=== PATIENT | female | born 1985 | race Hispanic/Latino ===

== ENCOUNTER 2020-06-13 19:59 | Observation (INO) | payer BC ==
[2020-06-13] MEDS ORDERED: MORPHINE 4 MG/ML SYR ONE ×2 (20:50→22:37)
[2020-06-13] MEDS ORDERED: ONDANSETRON 4 MG/2 ML VIAL ONE (20:50)
[2020-06-13] MEDS ORDERED: FAMOTIDINE 20 MG/2 ML VIAL IV ONE (20:51)
[2020-06-13] MEDS ORDERED: NA CHLORIDE 0.9% 1,000 ML ONE (20:51)
[2020-06-13 21:03] LABS: Urine Blood NEGATIVE (NEG); Urine Glucose NEGATIVE (NEG); Urine Protein 2+ (NEG); Urine Specific Gravity 1.025 (1.005-1.030)
[2020-06-13 21:04] LABS: Basophils % 0.4 % (0-1.3); Hematocrit 34.3 % (36.0-45.0); Lymphocytes % 7.2 % (15.3-44.8); MPV 7.7 fL (7.6-11.3); RBC Red Blood Cell Count 4.85 M/uL (3.86-4.86)
[2020-06-13 21:20] LABS: Albumin 3.9 g/dL (3.4-5.0); Bilirubin Direct 0.2 mg/dL (0-0.2); Bilirubin Total 0.5 mg/dL (0.2-1.0); Potassium 3.7 mmol/L (3.5-5.1); Protein, Total 8.4 g/dL (6.4-8.2)
[2020-06-13] MEDS ORDERED: D5 0.9 NS 1,000 ML IV ONE (22:33)
[2020-06-13] MEDS ORDERED: PROMETHAZINE INJ 25 MG/ML AMP ONE (22:41)
--- NOTE | 2020-06-14 00:37 | ER ---
Nurse's Notes [facility] Name: Ana Maria Urias Age: 34 yrs Sex: Female : 1985 Arrival Date: 06/13/2020 Time: 20:01 Bed 18 Private MD: Diagnosis: Abdominal Pain;Intractable Vomiting;Dehydration Presentation: 06/13 20:04 Chief complaint: Patient states: "I started getting sick on Sunday. I have had a cough, jd3 body aches and not feeling well. today I started having stomach pain and vomiting.". Coronavirus screen: cough unrelated to allergies, Client presents with at least one sign or symptom that may indicate coronavirus-19. Standard/surgical mask placed on the client. Provider contacted for isolation considerations. Ebola Screen: Patient negative for fever greater than or equal to 101.5 degrees Fahrenheit, and additional compatible Ebola Virus Disease symptoms. Initial Sepsis Screen: Does the patient meet any 2 criteria? No. Patient's initial sepsis screen is negative. Does the patient have a suspected source of infection? No. Patient's initial sepsis screen is negative. Risk Assessment: Do you want to hurt yourself or someone else? Patient reports no desire to harm self or others. Onset of symptoms was June 10, 2020. 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 - Social history:: Smoking status: Patient denies any tobacco usage or history of. Screenin:59 Abuse screen: Denies threats or abuse. Denies injuries from another. Nutritional mg2 screening: No deficits noted. Tuberculosis screening: No symptoms or risk factors identified. Fall Risk IV access (20 points). Assessment: 20:59 General: Appears in no apparent distress. comfortable, Behavior is calm, cooperative. mg2 Pain: Complains of pain in left upper quadrant and right upper quadrant and epigastric area. Neuro: Level of Consciousness is awake, alert, obeys commands, Oriented to person, place, time, situation. Cardiovascular: Capillary refill < 3 seconds Patient's skin is warm and dry. Respiratory: Airway is patent Respiratory effort is even, unlabored, Respiratory pattern is regular, symmetrical. GI: Bowel sounds present X 4 quads. Abd is soft. : Urine is clear. EENT: No signs and/or symptoms were reported regarding the EENT system. Derm: Skin is intact, is healthy with good turgor, Skin is pink, warm \\T\\ dry. normal. Musculoskeletal: Circulation, motion, and sensation intact. Capillary refill < 3 seconds. 21:48 Reassessment: Patient appears in no apparent distress at this time. Patient and/or mg2 family updated on plan of care and expected duration. Pain level reassessed. Patient is alert, oriented x 3, equal unlabored respirations, skin warm/dry/pink. 22:42 Reassessment: patient was vomiting and still complaining of abdominal pain, provider mg2 informed and meds was given. 06/14 01:03 Reassessment: patient still nauseous and been vomiting in ED. provider advised for mg2 admit. hospitalist came and exmained the patient. covid swab sent to lab. 02:29 Reassessment: Negative COVID 19 results reported to Jackson MARSHP, and Adelina ORDAZ [facility], sg pt to have a bed assignment, primary nurse notified. Vital Signs: 06/13 20:06 BP 138 / 88; Pulse 91; Resp 17 S; Temp 98.2(O); Pulse Ox 100% on R/A; Weight 92.99 kg jd3 (R); Height 5 ft. 5 in. (165.10 cm) (R); Pain 7/10; 21:48 Pulse 87; Resp 18; Pulse Ox 100% on R/A; mg2 22:41 BP 134 / 82; Pulse 82; Resp 18; Pulse Ox 100% on R/A; mg2 23:46 BP 124 / 77; Pulse 81; Resp 18; Pulse Ox 100% on R/A; mg2 06/14 01:04 BP 121 / 69; Pulse 90; Resp 18; Temp 98.5; Pulse Ox 100% on R/A; mg2 02:08 BP 124 / 76; Pulse 75; Resp 18; Pulse Ox 100% on R/A; mg2 06/13 20:06 Body Mass Index 34.11 (92.99 kg, 165.10 cm) jd3 ED Course: 06/13 20:01 Patient arrived in ED. am2 20:06 Triage completed. jd3 20:07 Long [place], SUSHMA is Primary Nurse. mg2 20:08 Arm band placed on. jd3 20:10 Veto Rosario MD is Attending Physician. mh7 20:39 Radiology exam delayed due to test not completed at this time. mw3 20:55 Radiology exam delayed due to test not completed at this time. mw3 20:58 No provider procedures requiring assistance completed. Inserted saline lock: 20 gauge mg2 in left antecubital area, using aseptic technique. Blood collected. 20:59 Patient has correct armband on for positive identification. Door closed. mg2 21:07 Chest Single View XRAY In Process Unspecified. EDMS 21:28 CT Abd/Pelvis - IV Contrast Only In Process Unspecified. EDMS 06/14 00:36 Mechelle Bone MD is Hospitalizing Provider. 7 02:47 Patient admitted, IV remains in place. mg2 Administered Medications: 06/13 20:57 Drug: morphine 4 mg Route: IVP; Site: left antecubital; mg2 22:16 Follow up: Response: No adverse reaction; RASS: Alert and Calm (0) mg2 20:57 Drug: Zofran (Ondansetron) 4 mg Route: IVP; Site: left antecubital; mg2 22:15 Follow up: Response: No adverse reaction mg2 20:57 Drug: Pepcid 20 mg Route: IVP; Site: left antecubital; mg2 22:15 Follow up: Response: No adverse reaction mg2 20:58 Drug: NS 0.9% 1000 ml Route: IV; Rate: 1000 ml; Site: left antecubital; mg2 22:16 Follow up: Response: No adverse reaction; IV Status: Completed infusion; IV Intake: mg2 1000ml 22:22 Drug: D5-NS 1000 ml Route: IV; Rate: bolus; Site: left antecubital; mg2 06/14 01:05 Follow up: Response: No adverse reaction; IV Status: Completed infusion; IV Intake: mg2 1000ml 06/13 22:32 Drug: morphine 4 mg Route: IVP; Site: left antecubital; mg2 23:00 Follow up: Response: No adverse reaction; Marked relief of symptoms; RASS: Alert and mg2 Calm (0) 22:33 Drug: Phenergan 12.5 mg Route: IVP; Site: left antecubital; mg2 23:00 Follow up: Response: No adverse reaction; Marked relief of symptoms mg2 06/14 00:56 Drug: Phenergan 12.5 mg Route: IVP; Site: left antecubital; mg2 02:11 Follow up: Response: No adverse reaction mg2 02:16 Drug: NS 0.9% 1000 ml Route: IV; Rate: 125 ml/hr; Site: left antecubital; mg2 02:16 Follow up: IV Status: Infusion continued upon admission mg2 Intake: 06/13 22:16 IV: 1000ml; Total: 1000ml. mg2 06/14 01:05 IV: 1000ml; Total: 2000ml. mg2 Outcome: 00:37 Decision to Hospitalize by Provider. mh7 02:47 Admitted to Med/surg accompanied by tech, via wheelchair, room 219, with chart, Report mg2 called to SUSHMA Craig 02:47 Condition: stable 02:47 Instructed on the need for admit, Demonstrated understanding of instructions. 02:48 Patient left the ED. mg2 Signatures: Dispatcher [employer] EDMS Dat Horton RN RN sg Kala Rao am2 Carlos Muse RN RN jd3 Gardose, Michele, RN RN mg2 Tali Andrew mw3 Veto Rosario MD MD 7 Corrections: (The following items were deleted from the chart) 06/13 20:08 20:06 Pulse 91bpm; Resp 17bpm; Spontaneous; Pulse Ox 100% RA; Temp 98.2F Oral; 92.99 kg jd3 Reported; Height 5 ft. 5 in. Reported; BMI: 34.1; Pain 7/10; jd3 06/14 02:09 01:04 BP 121 / 069; Pulse 90bpm; Resp 18bpm; Pulse Ox 100% RA; Temp 98.5F; mg2 mg2
--- NOTE | 2020-06-14 00:38 | EDPHYS ---
Physician Documentation [facility] Name: Ana Maria Urias Age: 34 yrs Sex: Female : 1985 Arrival Date: 06/13/2020 Time: 20:01 Bed 18 Private MD: ED Physician Veto Rosario HPI: 06/13 20:28 This 34 yrs old Female presents to ER via Ambulatory with complaints of mh7 Abdominal Pain, Nausea/Vomiting. 20:29 The patient presents with abdominal pain in the upper abdomen. Onset: The mh7 symptoms/episode began/occurred today. The symptoms radiate to the right flank. Associated signs and symptoms: Pertinent positives: nausea and vomiting, cough, sore throat started 2 days ago, Pertinent negatives: anorexia, blood in stools, chest pain, constipation, diarrhea, dysuria, fever, headache, hematuria, palpitations, shortness of breath, vaginal discharge, vomiting blood. The symptoms are described as intermittent, vague, waxing/waning. Modifying factors: The symptoms are alleviated by nothing, the symptoms are aggravated by nothing. Severity of pain: At its worst the pain was moderate today, in the emergency department the pain is unchanged. 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 - Social history:: Smoking status: Patient denies any tobacco usage or history of. ROS: 20:29 Constitutional: Negative for fever, chills, and weight loss, Eyes: Negative for injury, mh7 pain, redness, and discharge, Neck: Negative for injury, pain, and swelling, Cardiovascular: Negative for chest pain, palpitations, and edema, : Negative for injury, bleeding, discharge, and swelling, MS/Extremity: Negative for injury and deformity, Skin: Negative for injury, rash, and discoloration, Neuro: Negative for headache, weakness, numbness, tingling, and seizure, Psych: Negative for depression, anxiety, suicide ideation, homicidal ideation, and hallucinations, Allergy/Immunology: Negative for hives, rash, and allergies, Endocrine: Negative for neck swelling, polydipsia, polyuria, polyphagia, and marked weight changes, Hematologic/Lymphatic: Negative for swollen nodes, abnormal bleeding, and unusual bruising. Exam: 20:29 Head/Face: Normocephalic, atraumatic. Eyes: Pupils equal round and reactive to light, mh7 extra-ocular motions intact. Lids and lashes normal. Conjunctiva and sclera are non-icteric and not injected. Cornea within normal limits. Periorbital areas with no swelling, redness, or edema. ENT: Nares patent. No nasal discharge, no septal abnormalities noted. Tympanic membranes are normal and external auditory canals are clear. Oropharynx with no redness, swelling, or masses, exudates, or evidence of obstruction, uvula midline. Mucous membranes moist. Neck: Trachea midline, no thyromegaly or masses palpated, and no cervical lymphadenopathy. Supple, full range of motion without nuchal rigidity, or vertebral point tenderness. No Meningismus. Chest/axilla: Normal chest wall appearance and motion. Nontender with no deformity. No lesions are appreciated. Cardiovascular: Regular rate and rhythm with a normal S1 and S2. No gallops, murmurs, or rubs. Normal PMI, no JVD. No pulse deficits. Respiratory: Lungs have equal breath sounds bilaterally, clear to auscultation and percussion. No rales, rhonchi or wheezes noted. No increased work of breathing, no retractions or nasal flaring. 20:29 Back: No spinal tenderness. No costovertebral tenderness. Full range of motion. Skin: Warm, dry with normal turgor. Normal color with no rashes, no lesions, and no evidence of cellulitis. MS/ Extremity: Pulses equal, no cyanosis. Neurovascular intact. Full, normal range of motion. Neuro: Awake and alert, GCS 15, oriented to person, place, time, and situation. Cranial nerves II-XII grossly intact. Motor strength 5/5 in all extremities. Sensory grossly intact. Cerebellar exam normal. Normal gait. Psych: Awake, alert, with orientation to person, place and time. Behavior, mood, and affect are within normal limits. 20:29 Constitutional: The patient appears in no acute distress, alert, awake, uncomfortable. 20:29 Abdomen/GI: Inspection: abdomen appears normal, obese Bowel sounds: normal, in all quadrants, Palpation: moderate abdominal tenderness, in the epigastric area, right upper quadrant and left upper quadrant, Rectal exam: the exam is deferred, because of patient request, Indicators: McBurney's point is not tender, Wolf's sign is negative, Rovsing's sign is negative, Obturator sign is negative, Psoas sign is negative, Liver: no appreciated palpable abnormalities, Hernia: not appreciated. Vital Signs: 20:06 BP 138 / 88; Pulse 91; Resp 17 S; Temp 98.2(O); Pulse Ox 100% on R/A; Weight 92.99 kg jd3 (R); Height 5 ft. 5 in. (165.10 cm) (R); Pain 7/10; 21:48 Pulse 87; Resp 18; Pulse Ox 100% on R/A; mg2 22:41 BP 134 / 82; Pulse 82; Resp 18; Pulse Ox 100% on R/A; mg2 23:46 BP 124 / 77; Pulse 81; Resp 18; Pulse Ox 100% on R/A; mg2 06/14 01:04 BP 121 / 69; Pulse 90; Resp 18; Temp 98.5; Pulse Ox 100% on R/A; mg2 02:08 BP 124 / 76; Pulse 75; Resp 18; Pulse Ox 100% on R/A; mg2 06/13 20:06 Body Mass Index 34.11 (92.99 kg, 165.10 cm) jd3 MDM: 06/13 20:40 Patient medically screened. [facility] 06/14 00:34 Differential diagnosis: appendicitis, bowel obstruction, cholecystitis, Cholelithiasis, [facility] diverticulitis, Ectopic , gastritis, GI Bleed, non-specific abd pain, Pyelonephritis, Ureterolithiasis, urinary tract infection. Data reviewed: vital signs, nurses notes, lab test result(s), CBC, electrolytes, urinalysis, UPT: radiologic studies, CT scan, plain films. Data interpreted: Pulse oximetry: on room air is 100 %. Interpretation: normal. Counseling: I had a detailed discussion with the patient and/or guardian regarding: the historical points, exam findings, and any diagnostic results supporting the discharge/admit diagnosis, lab results, radiology results, the need for further work-up and treatment in the hospital. Response to treatment: the patient's symptoms have mildly improved after treatment. 06/13 20:28 Order name: Basic Metabolic Panel; Complete Time: 21:34 [facility] 06/13 20:28 Order name: CBC with Diff; Complete Time: 21:34 [facility] 06/13 20:28 Order name: Hepatic Function; Complete Time: 21:34 [facility] 06/13 20:28 Order name: Lipase; Complete Time: 21:34 [facility] 06/13 20:28 Order name: Influenza Screen (a \T\ B); Complete Time: 21:49 [facility] 06/13 20:28 Order name: Rapid Strep; Complete Time: 21:49 [facility] 06/13 20:28 Order name: CT Abd/Pelvis - IV Contrast Only [facility] 06/13 20:28 Order name: Chest Single View XRAY [facility] 06/13 20:58 Order name: Urine --Ancillary (enter results); Complete Time: 21:34 [facility] 06/13 20:58 Order name: Urine Dipstick--Ancillary (enter results); Complete Time: 21:34 [facility] 06/13 21:35 Order name: Throat Culture [facility] 06/14 00:34 Order name: COVID-19 [facility] 06/14 02:19 Order name: SARS-COV-2 RT PCR [facility] 06/13 20:28 Order name: IV Saline Lock; Complete Time: 20:58 [facility] 06/13 20:28 Order name: Labs collected and sent; Complete Time: 20:58 [facility] 06/13 20:28 Order name: Urine Dipstick-Ancillary (obtain specimen); Complete Time: 20:58 [facility] 06/13 20:28 Order name: Urine Test (obtain specimen); Complete Time: 20:58 [facility] Administered Medications: 06/13 20:57 Drug: morphine 4 mg Route: IVP; Site: left antecubital; mg2 22:16 Follow up: Response: No adverse reaction; RASS: Alert and Calm (0) mg2 20:57 Drug: Zofran (Ondansetron) 4 mg Route: IVP; Site: left antecubital; mg2 22:15 Follow up: Response: No adverse reaction mg2 20:57 Drug: Pepcid 20 mg Route: IVP; Site: left antecubital; mg2 22:15 Follow up: Response: No adverse reaction mg2 20:58 Drug: NS 0.9% 1000 ml Route: IV; Rate: 1000 ml; Site: left antecubital; mg2 22:16 Follow up: Response: No adverse reaction; IV Status: Completed infusion; IV Intake: mg2 1000ml 22:22 Drug: D5-NS 1000 ml Route: IV; Rate: bolus; Site: left antecubital; mg2 06/14 01:05 Follow up: Response: No adverse reaction; IV Status: Completed infusion; IV Intake: mg2 1000ml 06/13 22:32 Drug: morphine 4 mg Route: IVP; Site: left antecubital; mg2 23:00 Follow up: Response: No adverse reaction; Marked relief of symptoms; RASS: Alert and mg2 Calm (0) 22:33 Drug: Phenergan 12.5 mg Route: IVP; Site: left antecubital; mg2 23:00 Follow up: Response: No adverse reaction; Marked relief of symptoms mg2 06/14 00:56 Drug: Phenergan 12.5 mg Route: IVP; Site: left antecubital; mg2 02:11 Follow up: Response: No adverse reaction mg2 02:16 Drug: NS 0.9% 1000 ml Route: IV; Rate: 125 ml/hr; Site: left antecubital; mg2 02:16 Follow up: IV Status: Infusion continued upon admission mg2 Disposition: 06/14/20 00:37 Hospitalization ordered by Mechelle Bone for Observation. Preliminary diagnosis are Abdominal Pain, Intractable Vomiting, Dehydration. - Bed requested for Telemetry/MedSurg (observation). - Status is Observation. mg2 - Condition is Stable. - Problem is new. - Symptoms have improved. Signatures: Dispatcher [employer] EDOK Jackson Suero, DATA SYSTEMS ANALYST-C DATA SYSTEMS ANALYST-Cla1 Adelina Oconnor, RN RN cg Carlos Muse RN RN jLong Arellano RN RN mg2 Veto Rosario MD MD mh7 Corrections: (The following items were deleted from the chart) 01:11 00:35 CORONAVIRUS ordered. EDOK EDOK 02:31 00:37 Hospitalization Ordered by Mechelle Bone MD for Observation. Preliminary cg diagnosis is Abdominal Pain; Intractable Vomiting; Dehydration. Bed requested for Telemetry/MedSurg (observation). Status is Observation. Condition is Stable. Problem is new. Symptoms have improved. mh7 02:48 02:31 06/14/2020 00:37 Hospitalization Ordered by Mechelle Bone MD for Observation. mg2 Preliminary diagnosis is Abdominal Pain; Intractable Vomiting; Dehydration. Bed requested for Telemetry/MedSurg (observation). Status is Observation. Condition is Stable. Problem is new. Symptoms have improved. cg
[2020-06-14] MEDS ORDERED: PROMETHAZINE INJ 25 MG/ML AMP ONE (01:06)
--- NOTE | 2020-06-14 02:03 | P.HP ---
Certification for Inpatient Patient admitted to: Observation With expected LOS: <2 Midnights Patient will require the following post-hospital care: None Practitioner: I am a practitioner with admitting privileges, knowledge of patient current condition, hospital course, and medical plan of care. Services: Services provided to patient in accordance with Admission requirements found in Title 42 Section 412.3 of the Code of Federal Regulations <Jackson Suero - Last Filed: 06/14/20 01:59> Patient History Date of Service: 06/14/20 Primary Care Provider: None Reason for admission: Intractable vomiting History of Present Illness: 34-year-old female with no significant past medical history presents emergency department with abdominal pain, nausea and vomiting. Patient reports that over the course of the last week she had a dry cough and sore throat that went away but today she began having abdominal pain with nausea and vomiting. Patient reports generalized abdominal pain, 8-10 episodes of vomiting today. Unable hold down even clear liquids. Patient received Zofran 4 mg x1, Phenergan 12.5 mg x2, Pepcid 20 mg in the emergency department in still failed p.o. challenge with water. Labs significant for white blood cell count 13.5, hemoglobin 10.9, hematocrit 34.3, MCV 70.7. 4+ ketones in the urine. Patient appears dry. ED provider wishes to admit patient for dehydration, intractable vomiting. 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 COVID test pending at this time. CT abdomen pelvis without acute findings. - Past Medical/Surgical History -: none -: Psychosocial/ Personal History: Patient lives at home with family - Family History Family History: Reviewed- Non-Contributory - Social History Smoking Status: Never smoker Alcohol use: No CD- Drugs: No Caffeine use: No Place of Residence: Home <Jackson Suero - Last Filed: 06/14/20 01:59> Date of Service: 06/14/20 <Mechelle Bone - Last Filed: 06/14/20 16:23> Allergies No Known Allergies Allergy (Verified 06/14/20 03:12) Home Medications: Ondansetron [Zofran] 4 mg PO Q6H PRN #30 tab 06/14/20 Review of Systems 10-point ROS is otherwise unremarkable Gastrointestinal: Nausea, Vomiting, Abdominal Pain <Jackson Suero - Last Filed: 06/14/20 01:59> Physical Examination - Physical Exam General: Alert, In no apparent distress HEENT: Atraumatic, PERRLA, Mucous membr. moist/pink Neck: Supple, 2+ carotid pulse no bruit, No LAD Respiratory: Clear to auscultation bilaterally, Normal air movement Cardiovascular: Regular rate/rhythm, Normal S1 S2 Gastrointestinal: Hypoactive, No ascites, No rebound, No guarding, Tenderness (Mild generalized abdominal tenderness) Musculoskeletal: No tenderness Integumentary: No rashes Neurological: Normal speech, Normal strength at 5/5 x4 extr, Normal tone, Normal affect - Studies Laboratory Data (last 24 hrs) 06/13/20 20:40: WBC 13.5 H, Hgb 10.9 L, Hct 34.3 L, Plt Count 329 06/13/20 20:40: Sodium 137, Potassium 3.7, BUN 11, Creatinine 0.78, Glucose 102, Total Bilirubin 0.5, AST 31, ALT 67, Alkaline Phosphatase 113, Lipase 44 L Microbiology Data (last 24 hrs): 06/13/20 20:40 Nasopharnyx Influenza Type A Antigen Screen - Final 06/13/20 20:40 Nasopharnyx Influenza Type B Antigen Screen - Final 06/13/20 20:40 Throat Group A Streptococcus Rapid Screen - Final <Jackson Suero - Last Filed: 06/14/20 01:59> - Studies Laboratory Data (last 24 hrs) 06/13/20 20:40: WBC 13.5 H, Hgb 10.9 L, Hct 34.3 L, Plt Count 329 06/13/20 20:40: Sodium 137, Potassium 3.7, BUN 11, Creatinine 0.78, Glucose 102, Total Bilirubin 0.5, AST 31, ALT 67, Alkaline Phosphatase 113, Lipase 44 L Microbiology Data (last 24 hrs): 06/13/20 20:40 Nasopharnyx Influenza Type A Antigen Screen - Final 06/13/20 20:40 Nasopharnyx Influenza Type B Antigen Screen - Final 06/13/20 20:40 Throat Group A Streptococcus Rapid Screen - Final <Mechelle Bone - Last Filed: 06/14/20 16:23> Assessment and Plan - Plan Assessment Intractable vomiting with dehydration likely secondary to gastroenteritis Microcytic anemia Plan Intractable vomiting with dehydration likely secondary to gastroenteritis: Clear liquid diet, daily PPI, p.r.n. Zofran/Phenergan. Advance diet as tolerated. DVT prophylaxis Lovenox 40 mg subcutaneous once daily. COVID test pending. Daily labs. Microcytic anemia: JEFF suspected, labs ordered. Discharge Plan: Home Plan to discharge in: 24 Hours - Advance Directives Does patient have a Living Will: No Does patient have a Durable POA for Healthcare: No - Code Status/Comfort Care Code Status Assessed: Yes (Full code) Critical Care: No Time Spent Managing Pts Care (In Minutes): 55 <Jackson Suero - Last Filed: 06/14/20 01:59> Date of Service: 06/14/20 I agree with the findings as mentioned above. Patient is clinically doing really well. Hopefully she can go home later today if her symptoms are improved. <Mechelle Bone - Last Filed: 06/14/20 16:23>
[2020-06-14] MEDS ORDERED: NA CHLORIDE 0.9% 1,000 ML ONE (02:32)
[2020-06-14] MEDS: NA CHLORIDE 0.9% 1,000 ML IV SCH ×2 (02:53→11:42)
[2020-06-14] MEDS ORDERED: SODIUM CHLORIDE 0.9% 10ML INJ IV PRN (02:53)
[2020-06-14] MEDS ORDERED: ONDANSETRON 4 MG/2 ML VIAL IV PRN (02:53)
[2020-06-14] MEDS ORDERED: PROMETHAZINE INJ 25 MG/ML AMP IV PRN (02:53)
[2020-06-14] MEDS ORDERED: ACETAMINOPHEN 500 MG TAB PO PRN (02:53)
[2020-06-14 03:08] VITALS: BMI 34.3
[2020-06-14] MEDS ORDERED: MORPHINE 2 MG/ML SYR IV PRN (03:39)
[2020-06-14 04:13] LABS: Basophils % 0.6 % (0-1.3); Hematocrit 32.3 % (36.0-45.0); MPV 7.8 fL (7.6-11.3); RBC Red Blood Cell Count 4.48 M/uL (3.86-4.86)
[2020-06-14 04:33] LABS: BUN Blood Urea Nitrogen 7 mg/dL (7-18); Bicarbonate 26 mmol/L (21-32); Ferritin 9.2 ng/mL (8-388); Glucose Level 101 mg/dL (74-106); Magnesium 1.8 mg/dL (1.8-2.4); Potassium 3.8 mmol/L (3.5-5.1); Sodium Level 138 mmol/L (136-145); Thyroid Stimulating Hormone 0.755 uIU/mL (0.360-3.740); Transferrin 289 mg/dL (200-360)
[2020-06-14 07:43] LABS: Barbiturates NEGATIVE (NEGATIVE); Benzodiazepines NEGATIVE (NEGATIVE); Cocaine NEGATIVE (NEGATIVE); METHAMPHETAM NEGATIVE (NEGATIVE); Methadone NEGATIVE (NEGATIVE); Opiates POSITIVE (NEGATIVE); Phencyclidine NEGATIVE (NEGATIVE); THC Cannibis NEGATIVE (NEGATIVE)
[2020-06-14] MEDS ORDERED: INFLUENZA VACCINE (for 3y+) 0.5 ML DOSE IMVAC ONE (08:00)
--- NOTE | 2020-06-14 08:43 | RAD REPORT ---
EXAM DESCRIPTION: RAD - Chest Single View - 06/13/2020 9:07 pm CLINICAL HISTORY: COUGH Chest pain. COMPARISON: No comparisons FINDINGS: Portable technique limits examination quality. The lungs are grossly clear. The heart is normal in size. No displaced fractures. IMPRESSION: No acute intrathoracic process suspected.
[2020-06-14] MEDS ORDERED: ENOXAPARIN 40 MG/0.4 ML SQ SCH (09:00)
[2020-06-14] MEDS ORDERED: KCL 20 MEQ/100 mL IVPB 20 MEQ/100 ML BAG IV SCH (09:00)
[2020-06-14] MEDS ORDERED: PANTOPRAZOLE 40 MG INJ IVP SCH (09:00)
[2020-06-14] MEDS ORDERED: MAGNESIUM SULFATE 1 gm IVPB 1 GM/100 ML BAG IV ONE (09:00)
[2020-06-14 09:19] VITALS: O2SAT 98
--- NOTE | 2020-06-14 10:08 | RAD REPORT ---
EXAM DESCRIPTION: CT Abdomen and Pelvis With Intravenous Contrast CLINICAL HISTORY: The patient is 34 years old and is Female; ABD PAIN TECHNIQUE: Axial computed tomography images of the abdomen and pelvis with intravenous contrast. S agittal and coronal reformatted images were created and reviewed. This CT exam was performed using one or more of the following dose reduction techniques: automated exposure control, adjustment of t he mA and/or kV according to patient size, and/or use of iterative reconstruction technique. DLP: 1684 mGy*cm COMPARISON: None. FINDINGS: LUNG BASES: Lung bases are clear. HEART: Visualized heart is normal. ABDOMEN: LIVER: Unremarkable. No mass. GALLBLADDER AND BILE DUCTS: Unremarkable. No calcified stones. No ductal dilation. PANCREAS: Unremarkable. No mass. No ductal dilation. SPLEEN: Unremarkable. No splenomegaly. ADRENALS: Unremarkable. No mass. KIDNEYS AND URETERS: Unremarkable. No solid mass. No hydronephrosis. STOMACH AND BOWEL: Unremarkable. No obstruction. No mucosal thickening. PELVIS: APPENDIX: The appendix is seen and is within normal limits. BLADDER: Bladder is decompressed. No stone. REPRODUCTIVE: Unremarkable as visualized. Intrauterine contraceptive device. Anteverted retroflexe d uterus. ABDOMEN and PELVIS: INTRAPERITONEAL SPACE: Unremarkable. No free air. No significant fluid collection. BONES/JOINTS: No acute fracture. No dislocation. SOFT TISSUES: Unremarkable. VASCULATURE: Unremarkable. No abdominal aortic aneurysm. LYMPH NODES: Unremarkable. No enlarged lymph nodes. IMPRESSION: No acute abdominal or pelvic abnormality. Electronically signed by: Tre Cook DO 06/13/2020 10:00 PM METHODS ANALYST DATA PROCESSING Due to temporary technical issues with the PACS/Fluency reporting system, reports are being signed by the in house radiologist without review as a courtesy to ensure prompt reporting. The interpreting r adiologist is fully responsible for the content of the report.
--- NOTE | 2020-06-14 16:24 | P.DS ---
Discharge Date: 06/14/20 Primary Care Provider: None Disposition: ROUTINE DISCHARGE Discharge Condition: GOOD Reason for Admission: Intractable vomiting Brief History of Present Illness: Patient is a 34-year-old female came to the hospital with abdominal pain along with intractable nausea and vomiting. Her symptoms gradually got worse to where she had excruciating abdominal pain so she came to the emergency room for evaluation. In the ER her CT scan was negative. Patient will be admitted to the hospital for further evaluation. Hospital Course: Patient's CT scan was negative. Patient is tolerating diet. At this time patient is stable for discharge home with outpatient follow-up. Vital Signs/Physical Exam: Temp Pulse Resp BP Pulse Ox 98.6 F 70 18 136/73 100 06/14/20 12:00 06/14/20 12:00 06/14/20 12:00 06/14/20 12:00 06/14/20 12:00 General: Alert, In no apparent distress, Oriented x3 Laboratory Data at Discharge: WBC 11.3 K/uL (4.3-10.9) H D 06/14/20 03:39 Hgb 10.2 g/dL (12.0-15.0) L 06/14/20 03:39 Hct 32.3 % (36.0-45.0) L 06/14/20 03:39 Plt Count 317 K/uL (152-406) 06/14/20 03:39 Sodium 138 mmol/L (136-145) 06/14/20 03:39 Potassium 3.8 mmol/L (3.5-5.1) 06/14/20 03:39 BUN 7 mg/dL (7-18) 06/14/20 03:39 Creatinine 0.56 mg/dL (0.55-1.3) 06/14/20 03:39 Glucose 101 mg/dL (74-106) 06/14/20 03:39 Magnesium 1.8 mg/dL (1.8-2.4) 06/14/20 03:39 Total Bilirubin 0.5 mg/dL (0.2-1.0) 06/13/20 20:40 AST 31 U/L (15-37) 06/13/20 20:40 ALT 67 U/L (12-78) 06/13/20 20:40 Alkaline Phosphatase 113 U/L (45-117) 06/13/20 20:40 Lipase 44 U/L (73-393) L 06/13/20 20:40 Home Medications: Ondansetron [Zofran] 4 mg PO Q6H PRN #30 tab 06/14/20 New Medications: Ondansetron [Zofran] 4 mg PO Q6H PRN #30 tab PRN Reason: Nausea / Vomiting Patient Discharge Instructions: OK TO DC IV AND DC HOME. FOLLOW-UP WITH PRIMARY CARE PROVIDER IN 1-2 WEEKS. RETURN TO THE ER IF SYMPTOMS WORSEN. CALL or TEXT DR. SCOTT AT [phone] IF ANY QUESTIONS REGARDING HOSPITAL STAY. PLEASE CALL THE FLOOR AT [phone] IF ANY MEDICATION OR NURSING QUESTIONS. Diet: Regular Activity: Fall precautions Followup: NONE,NONE [Primary Care Provider] - Time spent managing pt's care (in minutes): 35
[2020-06-14 17:05] VITALS: BP 125/73; TEMP 98.1
== END 2020-06-14 18:00 | disposition home or self-care (01) ==
LOC: ER 19:59 → ERHOLD 06-14 01:21 → 2ND 06-14 02:33
PROVIDERS: ADMIT Hospitalist; ATTEND Hospitalist
DX: R11.2 Nausea with vomiting, unspecified (principal); R10.9 Unspecified abdominal pain; E86.0 Dehydration; Z20.828 Contact with and (suspected) exposure to other viral communicable diseases; D50.9 Iron deficiency anemia, unspecified; Z23 Encounter for immunization
CPT/HCPCS: 96361; 87070; 85025 ×2; 80048 ×2; 36415; 83735; 81025; 80076; 87081; 80307 ×8; 84443; 81003; 82728; 83690; 83540; 84466; 87804 ×2; 74177; 71045; 90471; 96375; 96374; 99285; U0003; Q9967; J2550 ×3; Q2035; C9113; J3480; J1650; J3475; J2270; J7042; J7030 ×3; J2405 ×2; G0378 ×2

== ENCOUNTER 2021-02-25 19:11 | Emergency (ER) | payer BC ==
[2021-02-25 20:03] LABS: Urine Blood Trace-intact (Negative); Urine Glucose Negative (Negative); Urine Protein 2+ (Negative); Urine Specific Gravity >=1.030 (1.005-1.030)
[2021-02-25 20:13] LABS: Urine Specific Gravity/Preg >1.030 (1.005-1.030)
[2021-02-25] MEDS ORDERED: NA CHLORIDE 0.9% 1,000 ML ONE ×2 (20:17→22:25)
[2021-02-25] MEDS ORDERED: MORPHINE 4 MG/ML SYR ONE (20:17)
[2021-02-25] MEDS ORDERED: ONDANSETRON 4 MG/2 ML VIAL ONE ×3 (20:17→22:54)
[2021-02-25 20:18] LABS: Absolute Lymphocytes (CBC) 0.9 K/uL (0.7-4.9); Basophils % 0.5 % (0-1.3); Hematocrit 34.9 % (36.0-45.0); Lymphocytes % 13.5 % (15.3-44.8); MPV 7.5 fL (7.6-11.3); RBC Red Blood Cell Count 4.89 M/uL (3.86-4.86)
[2021-02-25 20:29] LABS: ALT/SGPT 36 U/L (12-78); AST/SGOT 22 U/L (15-37); Albumin 3.8 g/dL (3.4-5.0); Alkaline Phosphatase 79 U/L (45-117); BUN Blood Urea Nitrogen 11 mg/dL (7-18); Bicarbonate 25 mmol/L (21-32); Bilirubin Direct 0.2 mg/dL (0-0.2); Bilirubin Total 0.7 mg/dL (0.2-1.0); Glucose Level 105 mg/dL (74-106); Lipase 37 U/L (73-393); Potassium 3.7 mmol/L (3.5-5.1); Protein, Total 8.4 g/dL (6.4-8.2); Sodium Level 136 mmol/L (136-145)
--- NOTE | 2021-02-25 20:36 | RAD REPORT ---
EXAM DESCRIPTION: CTAbdomen Pelvis W Contrast - 02/25/2021 8:19 pm CLINICAL HISTORY: Abdominal pain. ABD PAIN COMPARISON: Abdomen Pelvis W Contrast dated 06/13/2020 TECHNIQUE: Biphasic CT imaging of the abdomen and pelvis was performed with 100 ml non-ionic IV cont rast. All CT scans are performed using dose optimization technique as appropriate and may include automated exposure control or mA/KV adjustment according to patient size. FINDINGS: The lung bases are clear. The liver, spleen, pancreas, adrenal glands and kidneys are within normal limits. No bowel obstruction, free air, free fluid or abscess. The appendix is normal. No evidence of signi ficant lymphadenopathy. No suspicious bony findings. IUD noted. IMPRESSION: No acute intra-abdominal or pelvic finding.
[2021-02-25] MEDS ORDERED: KETOROLAC 30 MG/ML INJ ONE ×2 (22:53→22:55)
[2021-02-25] MEDS ORDERED: DICYCLOMINE HCL 10 MG CAP ONE (22:55)
--- NOTE | 2021-02-25 23:04 | EDPHYS ---
Physician Documentation [facility] Name: Ana Maria Urias Age: 35 yrs Sex: Female : 1985 Arrival Date: 02/25/2021 Time: 19:14 Bed 5 Private MD: ED Physician Veto Rosario HPI: 02/25 22:48 This 35 yrs old Female presents to ER via Ambulatory with complaints of kb Nausea/Vomiting, Abdominal Pain, Back Pain. 23:02 The patient presents to the emergency department with nausea, vomiting, abdominal pain. kb Onset: The symptoms/episode began/occurred this morning. Possible causes: unknown. The symptoms are aggravated by nothing. The symptoms are alleviated by nothing. Associated signs and symptoms: Pertinent positives: abdominal pain, nausea, vomiting, Pertinent negatives: fever. Severity of symptoms: At their worst the symptoms were moderate in the emergency department the symptoms are unchanged. The patient has not experienced similar symptoms in the past. The patient has not recently seen a physician. 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 Flu vaccine is not up to date. - Social history:: Smoking status: Patient denies any tobacco usage or history of. ROS: 23:01 Constitutional: Negative for fever, chills, and weight loss. kb 23:01 Abdomen/GI: Positive for abdominal pain, nausea and vomiting, Negative for diarrhea, constipation, abdominal cramps, abdominal distension, anorexia. 23:01 All other systems are negative. Exam: 23:01 Constitutional: This is a well developed, well nourished patient who is awake, alert, kb and in no acute distress. Head/Face: Normocephalic, atraumatic. ENT: Moist Mucous membranes Cardiovascular: Regular rate and rhythm with a normal S1 and S2. No gallops, murmurs, or rubs. No pulse deficits. Respiratory: Respirations even and unlabored. No increased work of breathing, no retractions or nasal flaring. Skin: Warm, dry with normal turgor. Normal color. MS/ Extremity: Pulses equal, no cyanosis. Neurovascular intact. Full, normal range of motion. Neuro: Awake and alert, GCS 15, oriented to person, place, time, and situation. Moves all extremities. Normal gait. Psych: Awake, alert, with orientation to person, place and time. Behavior, mood, and affect are within normal limits. 23:01 Abdomen/GI: Inspection: abdomen appears normal, Bowel sounds: normal, in all quadrants, Palpation: soft, in all quadrants, mild abdominal tenderness, in all quadrants. Vital Signs: 19:35 BP 140 / 90; Pulse 72; Resp 18 S; Temp 97.9(TE); Pulse Ox 100% on R/A; Weight 90.72 kg ca1 (R); Height 5 ft. 5 in. (165.10 cm) (R); Pain 8/10; 20:07 BP 134 / 81; Pulse 72; Resp 16 S; Pulse Ox 100% on R/A; ad5 21:01 BP 137 / 81; Pulse 73; Resp 16 S; Pulse Ox 100% ; ad5 22:29 BP 118 / 68; Pulse 86; Resp 18; Pulse Ox 99% on R/A; ad5 19:35 Body Mass Index 33.28 (90.72 kg, 165.10 cm) ca1 MDM: 19:40 Patient medically screened. kb 23:01 Data reviewed: vital signs, nurses notes. Data interpreted: Pulse oximetry: on room air kb is 99 %. Interpretation: normal. Counseling: I had a detailed discussion with the patient and/or guardian regarding: the historical points, exam findings, and any diagnostic results supporting the discharge/admit diagnosis, lab results, radiology results, the need for outpatient follow up, a family practitioner, to return to the emergency department if symptoms worsen or persist or if there are any questions or concerns that arise at home. 02/25 19:50 Order name: Basic Metabolic Panel; Complete Time: 20:29 kb 02/25 19:50 Order name: CBC with Diff; Complete Time: 20:29 kb 02/25 19:50 Order name: Hepatic Function; Complete Time: 20:29 kb 02/25 19:50 Order name: Lipase; Complete Time: 20:29 kb 02/25 20:02 Order name: Urine Dipstick-Ancillary; Complete Time: 20:21 EDMS 02/25 20:03 Order name: Urine --Ancillary (enter results); Complete Time: 20:21 tt3 02/25 19:50 Order name: CT Abd/Pelvis - IV Contrast Only; Complete Time: 20:45 kb 02/25 19:50 Order name: IV Saline Lock; Complete Time: 21:16 kb 02/25 19:50 Order name: Labs collected and sent; Complete Time: 21:16 kb 02/25 19:50 Order name: Urine Dipstick-Ancillary (obtain specimen); Complete Time: 21:16 kb 02/25 19:50 Order name: Urine Test (obtain specimen); Complete Time: 21:16 kb 02/25 21:59 Order name: PO challenge; Complete Time: 22:51 kb Administered Medications: 20:04 Drug: NS 0.9% 1000 ml Route: IV; Rate: 1000 ml; Site: left antecubital; ad5 20:05 Drug: Zofran (Ondansetron) 4 mg Route: IVP; Site: left antecubital; ad5 20:57 Follow up: Response: No adverse reaction; Nausea is decreased ad5 20:05 Drug: morphine 4 mg {Note: rass 0.} Route: IVP; Site: left antecubital; ad5 20:57 Follow up: Response: No adverse reaction; Pain is decreased; RASS: Alert and Calm (0) ad5 22:15 Drug: NS 0.9% 1000 ml Route: IV; Rate: 1000 ml; Site: left antecubital; ea 22:28 Follow up: IV Status: Completed infusion; IV Intake: 1000ml ad5 22:41 Drug: Ketorolac 15 mg Route: IVP; Site: left antecubital; ad5 22:41 Drug: Zofran (Ondansetron) 4 mg Route: IVP; Site: left antecubital; ad5 22:41 Drug: Bentyl (dicyclomine) 20 mg Route: PO; ad5 Disposition: 02/26 04:21 Co-signature as Attending Physician, Veto Rosario MD. [email or web address] Disposition Summary: 02/25/21 23:03 Discharge Ordered Location: Home kb Condition: Stable kb Diagnosis - Nausea with vomiting, unspecified kb - Abdominal pain, unspecified kb Followup: kb - With: Emergency Department - When: As needed - Reason: Worsening of condition Followup: kb - With: Private Physician - When: 2 - 3 days - Reason: Recheck today's complaints, Continuance of care, Re-evaluation by your physician Discharge Instructions: - Discharge Summary Sheet kb - Nausea and Vomiting, Adult, [id number] kb - Abdominal Pain, Adult, [id number] kb Forms: - Medication Reconciliation Form kb - Thank You Letter kb - Antibiotic Education kb - Prescription Opioid Use kb Prescriptions: - Zofran 4 mg Oral Tablet - take 1 tablet by ORAL route every 6 hours As needed; 20 tablet; Refills: 0, kb Product Selection Permitted - dicyclomine 20 mg Oral Tablet - take 1 tablet by ORAL route 4 times per day As needed; 20 tablet; Refills: 0, kb Product Selection Permitted Signatures: Dispatcher [employer] EDMS Bernie Hurst, PAINTER PLATE-C PAINTER PLATE-Wen Castillo, RN RN Martha Martin RN RN ca1 Veto Rosario MD MD [facility] Torsten Felix [facility]
--- NOTE | 2021-02-25 23:04 | ER ---
Nurse's Notes [facility] Name: Ana Maria Urias Age: 35 yrs Sex: Female : 1985 Arrival Date: 02/25/2021 Time: 19:14 Bed 5 Private MD: Diagnosis: Nausea with vomiting, unspecified;Abdominal pain, unspecified Presentation: 02/25 19:35 Chief complaint: Patient states: Abdominal pain all over radiating to the back, started ca1 today. Reports N/V/constipation. Coronavirus screen: Client denies travel out of the [place] in the last 14 days. headache, vomiting. Client presents with at least one sign or symptom that may indicate coronavirus-19. Standard/surgical mask placed on the client. Provider contacted for isolation considerations. Ebola Screen: Patient negative for fever greater than or equal to 101.5 degrees Fahrenheit, and additional compatible Ebola Virus Disease symptoms Patient denies exposure to infectious person. Patient denies travel to an Ebola-affected area in the 21 days before illness onset. No symptoms or risks identified at this time. Initial Sepsis Screen: Does the patient meet any 2 criteria? No. Patient's initial sepsis screen is negative. Does the patient have a suspected source of infection? No. Patient's initial sepsis screen is negative. Risk Assessment: Do you want to hurt yourself or someone else? Patient reports no desire to harm self or others. Onset of symptoms was February 25, 2021. 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 Flu vaccine is not up to date. - Social history:: Smoking status: Patient denies any tobacco usage or history of. Screenin:06 Abuse screen: Denies threats or abuse. Denies injuries from another. Nutritional ad5 screening: No deficits noted. Tuberculosis screening: No symptoms or risk factors identified. Fall Risk None identified. Assessment: 20:05 General: Appears uncomfortable, ill, Behavior is calm, cooperative, appropriate for ad5 age. Pain: Complains of pain in abdomen Pain radiates to back. Neuro: No deficits noted. Level of Consciousness is awake, alert, obeys commands, Oriented to person, place, time, situation, Appropriate for age Gait is steady. Cardiovascular: No deficits noted. Heart tones present Capillary refill < 3 seconds Patient's skin is warm and dry. Respiratory: No deficits noted. Airway is patent Respiratory effort is even, unlabored, Respiratory pattern is regular, symmetrical. GI: Abdomen is distended, Bowel sounds present X 4 quads. Abd is soft X 4 quads Reports lower abdominal pain, constipation, nausea, vomiting. : No deficits noted. No signs and/or symptoms were reported regarding the genitourinary system. Derm: Skin is pink, warm \T\ dry. Musculoskeletal: No deficits noted. No signs and/or symptoms reported regarding the musculoskeletal system. 21:01 Reassessment: Patient appears in no apparent distress at this time. Patient and/or ad5 family updated on plan of care and expected duration. Pain level reassessed. Patient states symptoms have improved. 22:28 Reassessment: Patient and/or family updated on plan of care and expected duration. Pain ad5 level reassessed. Patient is alert, oriented x 3, equal unlabored respirations, skin warm/dry/pink. Pt reports worsening pain and nausea, provider aware. Awaiting further orders. VS remain stable. Will continue to monitor. 23:12 Reassessment: Patient and/or family updated on plan of care and expected duration. Pain ea level reassessed. Patient is alert, oriented x 3, equal unlabored respirations, skin warm/dry/pink. Patient states symptoms have improved. Vital Signs: 19:35 BP 140 / 90; Pulse 72; Resp 18 S; Temp 97.9(TE); Pulse Ox 100% on R/A; Weight 90.72 kg ca1 (R); Height 5 ft. 5 in. (165.10 cm) (R); Pain 8/10; 20:07 BP 134 / 81; Pulse 72; Resp 16 S; Pulse Ox 100% on R/A; ad5 21:01 BP 137 / 81; Pulse 73; Resp 16 S; Pulse Ox 100% ; ad5 22:29 BP 118 / 68; Pulse 86; Resp 18; Pulse Ox 99% on R/A; ad5 19:35 Body Mass Index 33.28 (90.72 kg, 165.10 cm) ca1 ED Course: 19:14 Patient arrived in ED. cf2 19:36 Triage completed. ca1 19:36 Arm band placed on right wrist. ca1 19:40 Bernie Hur[facility]C [facility] kb 19:40 Veto Rosario MD is Attending Physician. kb 19:52 Torsten Felix is Primary Nurse. ad5 20:06 Initial lab(s) drawn, by me, sent to lab. Inserted saline lock: 20 gauge in left ad5 antecubital area, using aseptic technique. Blood collected. 20:07 Patient has correct armband on for positive identification. Bed in low position. Call ad5 light in reach. Side rails up X 1. Pulse ox on. NIBP on. Door closed. Noise minimized. Head of bed elevated. 20:19 CT Abd/Pelvis - IV Contrast Only In Process Unspecified. EDMS 23:10 No provider procedures requiring assistance completed. IV discontinued, intact, ea bleeding controlled, No redness/swelling at site. Pressure dressing applied. Administered Medications: 20:04 Drug: NS 0.9% 1000 ml Route: IV; Rate: 1000 ml; Site: left antecubital; ad5 20:05 Drug: Zofran (Ondansetron) 4 mg Route: IVP; Site: left antecubital; ad5 20:57 Follow up: Response: No adverse reaction; Nausea is decreased ad5 20:05 Drug: morphine 4 mg {Note: rass 0.} Route: IVP; Site: left antecubital; ad5 20:57 Follow up: Response: No adverse reaction; Pain is decreased; RASS: Alert and Calm (0) ad5 22:15 Drug: NS 0.9% 1000 ml Route: IV; Rate: 1000 ml; Site: left antecubital; ea 22:28 Follow up: IV Status: Completed infusion; IV Intake: 1000ml ad5 22:41 Drug: Ketorolac 15 mg Route: IVP; Site: left antecubital; ad5 22:41 Drug: Zofran (Ondansetron) 4 mg Route: IVP; Site: left antecubital; ad5 22:41 Drug: Bentyl (dicyclomine) 20 mg Route: PO; ad5 Intake: 22:28 IV: 1000ml; Total: 1000ml. ad5 Outcome: 23:03 Discharge ordered by . bandar 23:12 Discharged to home ambulatory, with family. alexi 23:12 Condition: stable 23:12 Discharge instructions given to patient, Instructed on discharge instructions, follow up and referral plans. medication usage, Demonstrated understanding of instructions, follow-up care, medications, Prescriptions given X 2. 23:20 Patient left the ED. tt3 Signatures: Dispatcher [employer] EDMS Bernie Hurst, WEI-Isaias CARVAJAL-Wen Castillo RN RN ea Acob, Cheryl RN RN ca1 Yenny Lino cf2 Hugo Berry tt3 Torsten Felix ad5
[2021-02-25 23:25] VITALS: TEMP 97.9
[2021-02-25 23:30] VITALS: BP 118/68; O2SAT 99
== END 2021-02-25 23:20 | disposition home or self-care (01) ==
LOC: ER 19:11
DX: R10.9 Unspecified abdominal pain (principal); R11.2 Nausea with vomiting, unspecified
CPT/HCPCS: 85025; 80048; 36415; 81025; 82565; 80076; 81003; 83690; 74177; 96375; 96374; 99284; Q9967; J7030 ×2; J2405 ×2

== ENCOUNTER 2021-09-05 09:21 | Emergency (ER) | payer BC ==
[2021-09-05] MEDS ORDERED: DICYCLOMINE HCL 20 MG/2 ML AMP IM ONE (10:34)
[2021-09-05] MEDS ORDERED: ONDANSETRON 4 MG/2 ML VIAL ONE (10:34)
[2021-09-05 10:37] LABS: Absolute Lymphocytes (CBC) 0.8 K/uL (0.7-4.9); Hematocrit 38.1 % (36.0-45.0); MPV 7.1 fL (7.6-11.3); RBC Red Blood Cell Count 5.23 M/uL (3.86-4.86)
[2021-09-05 10:56] LABS: ALT/SGPT 134 U/L (12-78); AST/SGOT 51 U/L (15-37); Albumin 3.9 g/dL (3.4-5.0); Alkaline Phosphatase 120 U/L (45-117); BUN Blood Urea Nitrogen 10 mg/dL (7-18); Bicarbonate 27 mmol/L (21-32); Bilirubin Direct 0.2 mg/dL (0-0.2); Bilirubin Total 0.5 mg/dL (0.2-1.0); Glucose Level 111 mg/dL (74-106); Lipase 37 U/L (73-393); Protein, Total 8.6 g/dL (6.4-8.2); Sodium Level 135 mmol/L (136-145)
--- NOTE | 2021-09-05 11:29 | RAD REPORT ---
EXAM DESCRIPTION: US - Abdomen Exam Limited - 09/05/2021 11:12 am CLINICAL HISTORY: r/o GB;Abd pain COMPARISON: Abdomen Pelvis W Contrast dated 02/25/2021 FINDINGS: The gallbladder demonstrates no gallstones. No pericholecystic fluid or gallbladder wall t hickening. The common bile duct is normal measuring 2 mm. The liver demonstrates no findings of intrahepatic biliary dilatation. IMPRESSION: Negative for cholelithiasis or acute cholecystitis. No biliary ductal dilatation.
[2021-09-05 11:43] LABS: SARS-COV-2 RT PCR POSITIVE (NEGATIVE)
--- NOTE | 2021-09-05 11:44 | ER ---
Nurse's Notes [facility] Name: Ana Maria Urias Age: 36 yrs Sex: Female : 1985 Arrival Date: 09/05/2021 Time: :24 Bed 20 Private MD: Diagnosis: SARS-associated coronavirus as the cause of diseases classified elsewhere;Upper abdominal pain, unspecified;Nausea with vomiting, unspecified Presentation: 09/05 09:34 Chief complaint: Patient states: "I had started with sore throat and coughing and now i jd3 have stomach pain that comes around to the back.". Coronavirus screen: cough unrelated to allergies, fatigue, headache, nausea, Client presents with at least one sign or symptom that may indicate coronavirus-19. Standard/surgical mask placed on the client. Provider contacted for isolation considerations. Ebola Screen: No symptoms or risks identified at this time. Initial Sepsis Screen: Does the patient meet any 2 criteria? No. Patient's initial sepsis screen is negative. Does the patient have a suspected source of infection? No. Patient's initial sepsis screen is negative. Risk Assessment: Do you want to hurt yourself or someone else? Patient reports no desire to harm self or others. Onset of symptoms was September 04, 2020. 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 Flu vaccine is not up to date. - Social history:: Smoking status: Patient denies any tobacco usage or history of. Screenin:43 Abuse screen: Denies threats or abuse. Nutritional screening: No deficits noted. ll1 Tuberculosis screening: No symptoms or risk factors identified. Fall Risk IV access (20 points). Gait- Weak (10 pts.). Total Heard Fall Scale indicates Low Risk Score (25-44 pts). Fall prevention measures have been instituted. Side Rails Up X 2 Frequent Obs/Assesments occuring As available Patient and Family Educated on Fall Prevention Program and strategies. Assessment: 09:30 General: Appears uncomfortable, ill, Behavior is calm, cooperative, appropriate for ll1 age. Pain: Complains of pain in head Quality of pain is described as aching. Neuro: Level of Consciousness is awake, alert, obeys commands, Oriented to person, place, time, situation, Appropriate for age Material Requirements Planning Manager are equal bilaterally Moves all extremities. Full function Gait is steady, Speech is normal, Facial symmetry appears normal, Reports dizziness, headache. Cardiovascular: No deficits noted. Respiratory: Reports cough that is Breath sounds are clear bilaterally. GI: Abdomen is round Bowel sounds present X 4 quads. Abd is soft and non tender X 4 quads. Reports lower abdominal pain, upper abdominal pain, cramping, nausea, vomiting. EENT: Reports pain when swallowing. Musculoskeletal: Reports body aches. 10:30 Reassessment: No changes from previously documented assessment. Patient and/or family ll1 updated on plan of care and expected duration. Pain level reassessed. Patient is alert, oriented x 3, equal unlabored respirations, skin warm/dry/pink. 11:30 Reassessment: No changes from previously documented assessment. Patient and/or family ll1 updated on plan of care and expected duration. Pain level reassessed. Patient is alert, oriented x 3, equal unlabored respirations, skin warm/dry/pink. 12:05 Reassessment: No changes from previously documented assessment. Patient and/or family ll1 updated on plan of care and expected duration. Pain level reassessed. Patient is alert, oriented x 3, equal unlabored respirations, skin warm/dry/pink. Vital Signs: 09:36 BP 124 / 99; Pulse 108; Resp 17 S; Temp 98.5(TE); Pulse Ox 100% on R/A; Weight 90.72 kg jd3 (R); Height 5 ft. 5 in. (165.10 cm) (R); Pain 10/10; 10:41 BP 124 / 68; Pulse 81; Resp 17; ll1 11:37 BP 110 / 74; Pulse 77; Resp 17; Pulse Ox 97% on R/A; Pain 7/10; ll1 12:05 Temp 98.9; ll1 09:36 Body Mass Index 33.28 (90.72 kg, 165.10 cm) jd3 ED Course: 09:24 Patient arrived in ED. mr 09:30 Inserted saline lock: 22 gauge in left antecubital area, using aseptic technique. Blood ll1 collected. 09:35 Triage completed. jd3 09:36 Arm band placed on. jd3 09:42 COVID swab sent to lab. Flu and/or RSV swab sent to lab. jd3 09:59 Aiden Hartley, RN is Primary Nurse. ll1 09:59 Patient placed in an exam room, on a stretcher. ll1 10:06 Pardeep Conley PA is PHCP. jr8 10:06 Keon Magallanes MD is Attending Physician. jr8 10:43 Patient has correct armband on for positive identification. Bed in low position. Call ll1 light in reach. Side rails up X 1. Pulse ox on. NIBP on. 11:12 US Abdomen Limited In Process Unspecified. EDMS 12:05 No provider procedures requiring assistance completed. IV discontinued, intact, ll1 bleeding controlled, No redness/swelling at site. Pressure dressing applied. Administered Medications: 10:40 Drug: Zofran (Ondansetron) 4 mg Route: IVP; Site: left antecubital; ll1 11:37 Follow up: Response: No adverse reaction ll1 10:40 Drug: Dicyclomine 20 mg {Note: rass 0.} Route: IM; Site: right gluteus; ll1 11:37 Follow up: Response: No adverse reaction ll1 Outcome: 11:43 Discharge ordered by . jr8 12:05 Discharged to home ambulatory. ll1 12:05 Condition: stable 12:05 Discharge instructions given to patient, Instructed on discharge instructions, follow up and referral plans. no drinking with medication, no driving heavy equipment, medication usage, Demonstrated understanding of instructions, follow-up care, medications, Prescriptions given X 3. 12:06 Patient left the ED. ll1 Signatures: Dispatcher [employer] [facility] Adriana Paula mr Pardeep Conley PA PA jr8 Carlos Muse RN RN jAiden Bean, SUSHMA RN ll1
--- NOTE | 2021-09-05 11:45 | EDPHYS ---
Physician Documentation [facility] Name: Ana Maria Urias Age: 36 yrs Sex: Female : 1985 Arrival Date: 09/05/2021 Time: 09:24 Bed 20 Private MD: ED Physician Keon Magallanes HPI: 09/05 10:46 This 36 yrs old Female presents to ER via Ambulatory with complaints of jr8 Abdominal Pain, Congestion, Cough, Headache. 10:46 The symptoms are described as crampy. Modifying factors: The symptoms are alleviated by jr8 nothing, the symptoms are aggravated by nothing. Severity of pain: At its worst the pain was moderate in the emergency department the pain is unchanged. It is unknown whether or not the patient has had similar symptoms in the past. The patient has not recently seen a physician. This is a 36-year-old female patient that presents to emergency room with complaints of cough, congestion, sneezing, headache, nausea and vomiting along with upper abdominal pain that started a day ago. Patient denies fevers or recent sick contacts. Denies any other symptoms at this time.. 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 Flu vaccine is not up to date. - Social history:: Smoking status: Patient denies any tobacco usage or history of. ROS: 10:46 Neck: Negative for injury, pain, and swelling, Cardiovascular: Negative for chest pain, jr8 palpitations, and edema, Back: Negative for injury and pain, MS/Extremity: Negative for injury and deformity, Skin: Negative for injury, rash, and discoloration. 10:46 ENT: Positive for sinus congestion. 10:46 Respiratory: Positive for cough, Negative for shortness of breath, sputum production, wheezing. 10:46 Abdomen/GI: Positive for nausea and vomiting, abdominal cramps. 10:46 Neuro: Positive for headache. Exam: 10:46 Eyes: Pupils equal round and reactive to light, extra-ocular motions intact. Lids and jr8 lashes normal. Conjunctiva and sclera are non-icteric and not injected. Cornea within normal limits. Periorbital areas with no swelling, redness, or edema. ENT: Nares patent. No nasal discharge, no septal abnormalities noted. Tympanic membranes are normal and external auditory canals are clear. Oropharynx with no redness, swelling, or masses, exudates, or evidence of obstruction, uvula midline. Mucous membranes moist. Neck: Trachea midline, no thyromegaly or masses palpated, and no cervical lymphadenopathy. Supple, full range of motion without nuchal rigidity, or vertebral point tenderness. No Meningismus. Cardiovascular: Regular rate and rhythm with a normal S1 and S2. No gallops, murmurs, or rubs. Normal PMI, no JVD. No pulse deficits. Respiratory: Lungs have equal breath sounds bilaterally, clear to auscultation and percussion. No rales, rhonchi or wheezes noted. No increased work of breathing, no retractions or nasal flaring. Back: No spinal tenderness. No costovertebral tenderness. Full range of motion. Skin: Warm, dry with normal turgor. Normal color with no rashes, no lesions, and no evidence of cellulitis. MS/ Extremity: Pulses equal, no cyanosis. Neurovascular intact. Full, normal range of motion. Neuro: Awake and alert, GCS 15, oriented to person, place, time, and situation. Cranial nerves II-XII grossly intact. Motor strength 5/5 in all extremities. Sensory grossly intact. 10:46 Abdomen/GI: Inspection: abdomen appears normal, Bowel sounds: active, all quadrants, Palpation: soft, in all quadrants, mild abdominal tenderness, in the epigastric area, right upper quadrant and left upper quadrant, mass, is not appreciated, rebound tenderness, is not appreciated, voluntary guarding, is not appreciated, involuntary guarding, is not appreciated, no appreciated organomegaly, Indicators: McBurney's point is not tender, Wolf's sign is negative, Rovsing's sign is negative, Liver: tenderness, is not appreciated. Vital Signs: 09:36 BP 124 / 99; Pulse 108; Resp 17 S; Temp 98.5(TE); Pulse Ox 100% on R/A; Weight 90.72 kg jd3 (R); Height 5 ft. 5 in. (165.10 cm) (R); Pain 10/10; 10:41 BP 124 / 68; Pulse 81; Resp 17; ll1 11:37 BP 110 / 74; Pulse 77; Resp 17; Pulse Ox 97% on R/A; Pain 7/10; ll1 12:05 Temp 98.9; ll1 09:36 Body Mass Index 33.28 (90.72 kg, 165.10 cm) jd3 MDM: 10:06 Patient medically screened. 8 11:42 Data reviewed: vital signs, nurses notes, lab test result(s), radiologic studies, jr8 ultrasound. Data interpreted: Pulse oximetry: on room air is 97 %. Interpretation: normal. Counseling: I had a detailed discussion with the patient and/or guardian regarding: the historical points, exam findings, and any diagnostic results supporting the discharge/admit diagnosis, lab results, radiology results, the need for outpatient follow up, a family practitioner, to return to the emergency department if symptoms worsen or persist or if there are any questions or concerns that arise at home. 11:42 Response to treatment: the patient's symptoms have markedly improved after treatment. 09/05 09:37 Order name: COVID-19/FLU A+B (Document "Date of Onset" if Symptomatic); Complete Time: jd3 11:45 09/05 10:22 Order name: Basic Metabolic Panel; Complete Time: 09/05 10:22 Order name: CBC with Diff; Complete Time: 10:46 09/05 10:22 Order name: Hepatic Function; Complete Time: :57 09/05 10:22 Order name: Lipase; Complete Time: 10:09/05 10:51 Order name: US Abdomen Limited; Complete Time: 11:38 09/05 10:22 Order name: IV Saline Lock; Complete Time: 10:24 09/05 10:22 Order name: Labs collected and sent; Complete Time: 10:24 Administered Medications: 10:40 Drug: Zofran (Ondansetron) 4 mg Route: IVP; Site: left antecubital; ll1 11:37 Follow up: Response: No adverse reaction ll1 10:40 Drug: Dicyclomine 20 mg {Note: rass 0.} Route: IM; Site: right gluteus; ll1 11:37 Follow up: Response: No adverse reaction ll1 Disposition: 13:18 Co-signature as Attending Physician, Keon Magallanes MD I agree with the assessment and kdr plan of care. Disposition Summary: 09/05/21 11:43 Discharge Ordered Location: Home jr8 Problem: new jr8 Symptoms: have improved jr8 Condition: Stable jr8 Diagnosis - SARS-associated coronavirus as the cause of diseases classified elsewhere jr8 - Upper abdominal pain, unspecified jr8 - Nausea with vomiting, unspecified jr8 Followup: jr8 - With: Private Physician - When: 1 week - Reason: Recheck today's complaints, Continuance of care, Re-evaluation by your physician Discharge Instructions: - Discharge Summary Sheet jr8 - COVID-19 jr8 Forms: - Work release form jr8 - Medication Reconciliation Form jr8 - Thank You Letter jr8 - Antibiotic Education jr8 - Prescription Opioid Use jr8 Prescriptions: - ondansetron 4 mg Oral tablet,disintegrating - take 1 tablet by ORAL route 4 times per day As needed; 12 tablet; Refills: 0, jr8 Product Selection Permitted - promethazine-DM 6.25-15 mg/5 mL Oral syrup - take 5 milliliter by ORAL route every 4-6 hours as needed, not to exceed 30 mL jr8 in 24 hours; 110 milliliter; Refills: 0, Product Selection Permitted - dicyclomine 20 mg Oral Tablet - take 1 tablet by ORAL route 3 times per day As needed; 20 tablet; Refills: 0, jr8 Product Selection Permitted Signatures: Dispatcher [employer] EDNJ Keon Magallanes MD MD kdr Roszak, Josh, PA PA jr8 Carlos Muse RN RN jd3 Aiden Hartley RN RN ll1
[2021-09-05 21:08] VITALS: BP 110/74; O2SAT 97
[2021-09-05 21:09] VITALS: TEMP 98.9
== END 2021-09-05 12:06 | disposition home or self-care (01) ==
LOC: ER 09:21
DX: U07.1 COVID-19 (principal); R10.10 Upper abdominal pain, unspecified; R11.2 Nausea with vomiting, unspecified
CPT/HCPCS: 85025; 80048; 36415; 80076; 83690; 0240U; 76705; J0500; J2405; 96372; 96374; 99284

== ENCOUNTER 2022-07-11 20:03 | Emergency (ER) | payer BC, SELFPAY ==
[2022-07-11] MEDS ORDERED: ONDANSETRON 4 MG/2 ML VIAL ONE (20:47)
[2022-07-11] MEDS ORDERED: NA CHLORIDE 0.9% 1,000 ML ONE (20:48)
[2022-07-11] MEDS ORDERED: FAMOTIDINE 20 MG/2 ML VIAL IV ONE (20:48)
[2022-07-11 21:07] LABS: Urine Blood 1+ (Negative); Urine Glucose Negative (Negative); Urine Protein 2+ (Negative); Urine Specific Gravity >=1.030 (1.005-1.030)
[2022-07-11] MEDS ORDERED: MORPHINE 4 MG/ML SYR ONE (21:50)
--- NOTE | 2022-07-11 22:23 | RAD REPORT ---
EXAM DESCRIPTION: US - Abdomen Exam Limited - 07/11/2022 10:18 pm CLINICAL HISTORY: ABD PAIN COMPARISON: <Comparisons> FINDINGS: The gallbladder demonstrates no gallstones. No pericholecystic fluid or gallbladder wall t hickening. The common bile duct is normal measuring 4 mm. The liver demonstrates no findings of intrahepatic biliary dilatation. IMPRESSION: Unremarkable examination.
[2022-07-11 23:03] LABS: Hematocrit 34.5 % (36.0-45.0); Lymphocytes % 7.6 % (15.3-44.8); MCV 74.4 fL (80-100); MPV 7.4 fL (7.6-11.3); RBC Red Blood Cell Count 4.64 M/uL (3.86-4.86)
[2022-07-11 23:03] LABS: SARS-COV-2 RT PCR NEGATIVE (NEGATIVE)
[2022-07-11 23:10] LABS: Albumin 3.4 g/dL (3.4-5.0); Bilirubin Total 0.5 mg/dL (0.2-1.0); Protein, Total 7.5 g/dL (6.4-8.2)
[2022-07-12] MEDS ORDERED: ONDANSETRON 4 MG/2 ML VIAL ONE (00:27)
[2022-07-12] MEDS ORDERED: MORPHINE 4 MG/ML SYR ONE (00:27)
--- NOTE | 2022-07-12 01:38 | ER ---
Nurse's Notes [facility] Name: Ana Maria Urias Age: 36 yrs Sex: Female : 1985 Arrival Date: 07/11/2022 Time: 20:07 Bed Treatment Private MD: Diagnosis: Nausea with vomiting, unspecified;Abdominal pain, unspecified Presentation: 07/11 20:11 Chief complaint: Patient states: N/V/Fever X 2 days. Coronavirus screen: At this time, ld1 the client does not indicate any symptoms associated with coronavirus-19. Ebola Screen: No symptoms or risks identified at this time. Initial Sepsis Screen: Does the patient meet any 2 criteria? No. Patient's initial sepsis screen is negative. Does the patient have a suspected source of infection? No. Patient's initial sepsis screen is negative. Risk Assessment: Do you want to hurt yourself or someone else? Patient reports no desire to harm self or others. Onset of symptoms was July 11, 2022 at 20:12. 20:11 Method Of Arrival: Ambulatory ld1 20:11 Acuity: ESEQUIEL 3 ld1 Triage Assessment: 20:12 General: Appears in no apparent distress. comfortable, Behavior is calm, cooperative, ld1 appropriate for age. Pain: Denies pain. EENT: No signs and/or symptoms were reported regarding the EENT system. Neuro: Level of Consciousness is awake, alert, obeys commands, Oriented to person, place, time, situation. Cardiovascular: Capillary refill < 3 seconds Patient's skin is warm and dry. Respiratory: Airway is patent Respiratory effort is even, unlabored. GI: Abdomen is round non-distended, Reports nausea, vomiting. : No signs and/or symptoms were reported regarding the genitourinary system. Derm: No signs and/or symptoms reported regarding the dermatologic system. Musculoskeletal: No signs and/or symptoms reported regarding the musculoskeletal system. 20:13 GI: Reports lower abdominal pain, upper abdominal pain. 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 - Social history:: Smoking status: Patient denies any tobacco usage or history of. Patient/guardian denies using alcohol. Screenin:10 Abuse screen: Denies threats or abuse. Nutritional screening: No deficits noted. em6 Tuberculosis screening: No symptoms or risk factors identified. Fall Risk IV access (20 points). Total Heard Fall Scale indicates No Risk (0-24 pts). Assessment: 21:10 General: Appears uncomfortable, Behavior is cooperative. Pain: Complains of pain in em6 abdomen Pain does not radiate. Pain currently is 10 out of 10 on a pain scale. Quality of pain is described as sharp. Neuro: Level of Consciousness is awake, alert, obeys commands, Oriented to person, place, time, situation. Cardiovascular: Patient's skin is warm and dry. Respiratory: Airway is patent Respiratory effort is even, unlabored, Respiratory pattern is regular, symmetrical, Breath sounds are clear bilaterally. GI: Abdomen is non-distended, Bowel sounds present X 4 quads. Abd is soft and non tender X 4 quads. : No signs and/or symptoms were reported regarding the genitourinary system. EENT: No signs and/or symptoms were reported regarding the EENT system. Derm: No signs and/or symptoms reported regarding the dermatologic system. Musculoskeletal: Circulation, motion, and sensation intact. Range of motion: intact in all extremities. 22:10 Reassessment: Patient appears in no apparent distress at this time. No changes from em6 previously documented assessment. Patient and/or family updated on plan of care and expected duration. Pain level reassessed. 22:10 Reassessment: patient is stating abdominal pain. provider notified. new orders given. em6 23:10 Reassessment: Patient appears in no apparent distress at this time. Patient and/or em6 family updated on plan of care and expected duration. Pain level reassessed. Patient states symptoms have improved. 07/12 00:21 Reassessment: Patient appears in no apparent distress at this time. Patient and/or pf1 family updated on plan of care and expected duration. Pain level reassessed. Patient is alert, oriented x 3, equal unlabored respirations, skin warm/dry/pink. General: Appears in no apparent distress. uncomfortable, well groomed, emaciated, Behavior is calm, cooperative, appropriate for age, quiet. Pain: Complains of pain in patient C/O upper abdominal pain that radiates to right flank,onset 2 days. Neuro: No deficits noted. Cardiovascular: No deficits noted. Respiratory: No deficits noted. GI: Abdomen is round non-distended, Last BM was July 11, 2022. Bowel sounds present X 4 quads. Abd is soft Abdomen is tender to palpation in right upper quadrant and left upper quadrant Reports nausea, vomiting. : No deficits noted. EENT: No deficits noted. Derm: No deficits noted. 02:18 General: Patient PO challenged at this time. pf1 Vital Signs: 07/11 20:11 Pulse 111; Resp 18; Temp 99(O); Pulse Ox 100% on R/A; Weight 90.26 kg; Height 5 ft. 5 ld1 in. (165.10 cm); Pain 0/10; 20:14 BP 150 / 92; ld1 21:30 BP 124 / 78; Pulse 86; Resp 18; Pulse Ox 100% ; em6 23:12 BP 122 / 76; Pulse 90; Resp 18; Pulse Ox 100% on R/A; em6 07/12 00:14 BP 114 / 64; Pulse 86; Resp 18; Temp 99.1; Pulse Ox 100% ; Pain 8/10; pf1 02:00 BP 128 / 63; Pulse 80; Resp 16; Pulse Ox 100% ; Pain 8/10; pf1 03:00 BP 146 / 78; Pulse 82; Resp 18; Temp 98.5; Pulse Ox 100% ; Pain 5/10; pf1 07/11 20:11 Body Mass Index 33.11 (90.26 kg, 165.10 cm) ld1 ED Course: 07/11 20:07 Patient arrived in ED. ja2 20:09 Sven Berger PA is PHCP. cp 20:09 Sven Kaiser MD is Attending Physician. cp 20:12 Triage completed. ld1 20:12 Arm band placed on right wrist. ld1 20:59 Chelsey Montilla, SUSHMA is Primary Nurse. em6 21:10 Placed in gown. Bed in low position. Call light in reach. Side rails up X 1. Pulse ox em6 on. NIBP on. Warm blanket given. 21:10 Inserted saline lock: 20 gauge in right antecubital area, using aseptic technique. em6 Blood collected. 21:16 CBC with Diff Sent. em6 21:16 CMP Sent. em6 21:16 Lipase Sent. em6 22:10 COVID-19/FLU A+B Sent. em6 22:20 US Abdomen Limited: gallbladder In Process Unspecified. EDMS 23:49 CT Abd/Pelvis - IV Contrast Only In Process Unspecified. EDMS 07/12 02:00 No provider procedures requiring assistance completed. pf1 03:00 IV discontinued, intact, bleeding controlled, No redness/swelling at site. Pressure pf1 dressing applied. Administered Medications: 07/11 21:10 Drug: NS 0.9% 1000 ml Route: IV; Rate: 1 bolus; Site: right antecubital; em6 22:20 Follow up: Response: No adverse reaction; IV Status: Completed infusion; IV Intake: em6 1000ml 21:10 Drug: Pepcid (famotidine) 20 mg Route: IVP; Site: right antecubital; em6 22:00 Follow up: Response: No adverse reaction em6 21:10 Drug: Zofran (Ondansetron) 4 mg Route: IVP; Site: right antecubital; em6 22:00 Follow up: Response: No adverse reaction em6 22:10 Drug: morphine 4 mg Route: IVP; Infused Over: 4 mins; Site: left antecubital; em6 23:00 Follow up: Response: No adverse reaction; RASS: Alert and Calm (0) em6 07/12 02:15 Drug: Phenergan (promethazine) 25 mg Route: IM; Site: left gluteus; pf1 03:00 Follow up: Response: No adverse reaction; Nausea is decreased; Vomiting decreased pf1 Medication: 02:00 VIS not applicable for this client. pf1 Intake: 07/11 22:20 IV: 1000ml; Total: 1000ml. em6 Outcome: 07/12 01:38 Discharge ordered by . cp 03:19 Discharged to home ambulatory, with significant other. pf1 03:19 Condition: improved 03:19 Discharge instructions given to patient, Instructed on discharge instructions, follow up and referral plans. medication usage, Demonstrated understanding of instructions, follow-up care, medications, Prescriptions given X 2. 03:20 Patient left the ED. pf1 Signatures: Dispatcher [employer] EDTN Sven Berger PA PA cp Dibbern, Lauren RN RN ld1 Em Rollins Erika, RN RN em6 Faudmo rivera RN RN pf1
--- NOTE | 2022-07-12 01:38 | EDPHYS ---
Physician Documentation [facility] Name: Ana Maria Urias Age: 36 yrs Sex: Female : 1985 Arrival Date: 07/11/2022 Time: 20:07 Bed Treatment Private MD: ED Physician Sven Kaiser HPI: 07/11 20:30 This 36 yrs old Female presents to ER via Ambulatory with complaints of Fever, cp Vomiting. 20:30 The patient reports fever, not measured (subjective). cp 20:30 Onset: The symptoms/episode began/occurred 2 day(s) ago. Associated signs and symptoms: cp Pertinent positives: abdominal pain, nausea, vomiting, Pertinent negatives: cough, diarrhea. Severity of symptoms: in the emergency department the symptoms are unchanged despite home interventions. 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 - Social history:: Smoking status: Patient denies any tobacco usage or history of. Patient/guardian denies using alcohol. ROS: 20:35 Eyes: Negative for injury, pain, redness, and discharge. cp 20:35 Constitutional: Positive for poor PO intake, Negative for fever. 20:35 ENT: Negative for drainage from ear(s), ear pain, sore throat, difficulty swallowing, difficulty handling secretions. 20:35 Cardiovascular: Negative for chest pain. 20:35 Respiratory: Negative for cough, shortness of breath, wheezing. 20:35 Abdomen/GI: Positive for abdominal pain, nausea and vomiting, Negative for diarrhea, constipation, hematemesis, black/tarry stool, rectal bleeding. 20:35 Back: Negative for pain at rest, pain with movement. 20:35 : Negative for urinary symptoms, pelvic pain. 20:35 Neuro: Negative for altered mental status. 20:35 All other systems are negative. Exam: 20:40 Constitutional: The patient appears in no acute distress, alert, awake, non-toxic, well cp developed, well nourished, uncomfortable. 20:40 Head/Face: Normocephalic, atraumatic. cp 20:40 Eyes: Periorbital structures: appear normal, Conjunctiva: normal, no exudate, no injection, Sclera: no appreciated abnormality, Lids and lashes: appear normal, bilaterally. 20:40 ENT: External ear(s): are unremarkable, Nose: is normal, Mouth: Lips: moist, Oral mucosa: pink and intact, moist, Posterior pharynx: Airway: no evidence of obstruction, patent, swelling, is not appreciated, erythema, is not appreciated, exudate, is not appreciated. 20:40 Chest/axilla: Inspection: normal. 20:40 Cardiovascular: Rate: tachycardic, Rhythm: regular. 20:40 Respiratory: the patient does not display signs of respiratory distress, Respirations: normal, no use of accessory muscles, no retractions, labored breathing, is not present, Breath sounds: are clear throughout, no decreased breath sounds, no stridor, no wheezing. 20:40 Abdomen/GI: Inspection: abdomen appears normal, Bowel sounds: active, all quadrants, Palpation: soft, in all quadrants, moderate abdominal tenderness, in the epigastric area, right upper quadrant and left upper quadrant, rebound tenderness, is not appreciated, voluntary guarding, is elicited in the epigastric area, right upper quadrant and left upper quadrant. 20:40 Back: CVA tenderness, is absent. 20:40 Neuro: Orientation: to person, place \T\ time. Mentation: is normal, Motor: moves all fours, strength is normal, Sensation: no obvious gross deficits. 07/12 01:36 : Pelvic Exam: The exam is refused by the patient/guardian. The risks and cp consequences are understood by the patient. Vital Signs: 07/11 20:11 Pulse 111; Resp 18; Temp 99(O); Pulse Ox 100% on R/A; Weight 90.26 kg; Height 5 ft. 5 ld1 in. (165.10 cm); Pain 0/10; 20:14 BP 150 / 92; ld1 21:30 BP 124 / 78; Pulse 86; Resp 18; Pulse Ox 100% ; em6 23:12 BP 122 / 76; Pulse 90; Resp 18; Pulse Ox 100% on R/A; em6 07/12 00:14 BP 114 / 64; Pulse 86; Resp 18; Temp 99.1; Pulse Ox 100% ; Pain 8/10; pf1 02:00 BP 128 / 63; Pulse 80; Resp 16; Pulse Ox 100% ; Pain 8/10; pf1 03:00 BP 146 / 78; Pulse 82; Resp 18; Temp 98.5; Pulse Ox 100% ; Pain 5/10; pf1 07/11 20:11 Body Mass Index 33.11 (90.26 kg, 165.10 cm) ld1 MDM: 07/11 20:14 Patient medically screened. 07/12 01:35 Data reviewed: vital signs, nurses notes, lab test result(s), radiologic studies, CT cp scan, ultrasound. 01:35 Counseling: I had a detailed discussion with the patient and/or guardian regarding: the cp historical points, exam findings, and any diagnostic results supporting the discharge/admit diagnosis, lab results, radiology results, the need for outpatient follow up, a family practitioner, to return to the emergency department if symptoms worsen or persist or if there are any questions or concerns that arise at home. Response to treatment: the patient's symptoms have markedly improved after treatment, VSS. Pain and nausea markedly improved, vomiting resolved. CT abdomen/pelvis negative for significant findings. Will discharge to home for continued monitoring. 07/11 20:19 Order name: CBC with Diff; Complete Time: 01:19 cp 07/12 01:19 Interpretation: Normal except: WBC 13.70; HGB 10.8; HCT 34.5; MCV 74.4; MCH 23.3; MCHC cp 31.3; RDW 17.4; MPV 7.4; FATIMAH% 85.6; LYM% 7.6; NEUT A 11.7. 07/11 20:19 Order name: CMP; Complete Time: 01:19 cp 07/11 20:19 Order name: Lipase; Complete Time: 01:19 cp 07/11 20:19 Order name: Lactate w/ 2H reflex if indic.; Complete Time: 22:50 cp 07/11 21:07 Order name: Urine Dipstick-Ancillary; Complete Time: 21:41 EDMS 07/11 21:41 Interpretation: Normal except: UKET 4+; UBLD 1+; UPROT 2+. 07/11 21:41 Order name: COVID-19/FLU A+B; Complete Time: 01:19 cp 07/11 21:44 Order name: CT Abd/Pelvis - IV Contrast Only cp 07/11 21:44 Order name: US Abdomen Limited: gallbladder; Complete Time: 22:50 cp 07/11 22:51 Interpretation: Report reviewed. cp 07/11 20:19 Order name: IV Saline Lock; Complete Time: 21:16 cp 07/11 20:19 Order name: Labs collected and sent; Complete Time: 21:16 cp 07/11 20:19 Order name: Urine Dipstick-Ancillary (obtain specimen); Complete Time: 21:16 cp 07/11 20:19 Order name: Urine Test (obtain specimen); Complete Time: 21:16 cp 07/11 21:44 Order name: NPO; Complete Time: 22:10 cp 07/11 22:25 Order name: Labs - recollect needed: lav and green top needed; Complete Time: 22:41 mw2 07/12 01:19 Order name: PO challenge; Complete Time: 03:17 cp Administered Medications: 07/11 21:10 Drug: NS 0.9% 1000 ml Route: IV; Rate: 1 bolus; Site: right antecubital; em6 22:20 Follow up: Response: No adverse reaction; IV Status: Completed infusion; IV Intake: em6 1000ml 21:10 Drug: Pepcid (famotidine) 20 mg Route: IVP; Site: right antecubital; em6 22:00 Follow up: Response: No adverse reaction em6 21:10 Drug: Zofran (Ondansetron) 4 mg Route: IVP; Site: right antecubital; em6 22:00 Follow up: Response: No adverse reaction em6 22:10 Drug: morphine 4 mg Route: IVP; Infused Over: 4 mins; Site: left antecubital; em6 23:00 Follow up: Response: No adverse reaction; RASS: Alert and Calm (0) em6 07/12 02:15 Drug: Phenergan (promethazine) 25 mg Route: IM; Site: left gluteus; pf1 03:00 Follow up: Response: No adverse reaction; Nausea is decreased; Vomiting decreased pf1 Disposition Summary: 07/12/22 01:38 Discharge Ordered Location: Home cp Problem: new cp Symptoms: have improved cp Condition: Stable cp Diagnosis - Nausea with vomiting, unspecified cp - Abdominal pain, unspecified cp Followup: cp - With: Private Physician - When: 2 - 3 days - Reason: Recheck today's complaints Discharge Instructions: - Discharge Summary Sheet cp - Abdominal Pain, Adult cp - Nausea and Vomiting, Adult cp Forms: - Medication Reconciliation Form cp - Thank You Letter cp - Antibiotic Education cp - Prescription Opioid Use cp Prescriptions: - Pepcid 20 mg Oral Tablet - take 1 tablet by ORAL route every 12 hours for 10 days; 20 tablet; Refills: 0, cp Product Selection Permitted - promethazine 25 mg Oral Tablet - take 1 tablet by ORAL route every 6 hours As needed; 20 tablet; Refills: 0, cp Product Selection Permitted Signatures: Dispatcher [employer] EDMS Sven Berger PA PA cp Yaw Adkins mw2 Ginger Navarro RN RN ld1 Chelsey Montilla RN RN em6 Fadumo rivera RN RN pf1 Corrections: (The following items were deleted from the chart) :07/11 22:10 Constitutional: Positive for poor PO intake, Negative for fever, cp cp 07/12 23:07/11 22:10 Cardiovascular: Negative for chest pain, cp cp 07/12 23:07/11 22:10 Respiratory: Negative for cough, shortness of breath, wheezing, cp cp 07/12 23:07/11 22:10 Abdomen/GI: Positive for abdominal pain, nausea and vomiting, Negative for cp diarrhea, constipation, hematemesis, black/tarry stool, rectal bleeding, cp 07/12 23:07/11 22:10 Eyes: Negative for injury, pain, redness, and discharge, cp cp 07/12 23:07/11 22:10 ENT: Negative for drainage from ear(s), ear pain, sore throat, difficulty cp swallowing, difficulty handling secretions, cp 07/12 23:07/11 22:10 Back: Negative for pain at rest, pain with movement, cp cp 07/12 23:07/11 22:10 Neuro: Negative for altered mental status, cp cp 07/12 23:07/11 22:10 : Negative for urinary symptoms, pelvic pain, cp cp 07/12 23:07 07/11 22:10 All other systems are negative, cp cp
[2022-07-12] MEDS ORDERED: PROMETHAZINE INJ 25 MG/ML AMP ONE (02:11)
[2022-07-12 03:25] VITALS: O2SAT 100
[2022-07-12 03:32] VITALS: BP 146/78; TEMP 98.5
--- NOTE | 2022-07-12 13:26 | RAD REPORT ---
EXAM DESCRIPTION: CT - Abdomen Pelvis W Contrast - 07/12/2022 6:45 am CLINICAL HISTORY: The patient is 36 years old and is Female; right upper abdomen pain TECHNIQUE: Axial computed tomography images of the abdomen and pelvis with intravenous contrast. S agittal and coronal reformatted images were created and reviewed. This CT exam was performed using one or more of the following dose reduction techniques: automated exposure control, adjustment of t he mA and/or kV according to patient size, and/or use of iterative reconstruction technique. COMPARISON: CT of the abdomen and pelvis February 25, 2021 FINDINGS: LUNG BASES: Unremarkable. No mass. No consolidation. ABDOMEN: LIVER: Unremarkable. No mass. GALLBLADDER AND BILE DUCTS: Gallbladder is physiologically distended. No calcified gallstones or ductal dilatation is seen. PANCREAS: No ductal dilation. No mass. SPLEEN: Unremarkable. ADRENALS: Unremarkable. No mass. KIDNEYS AND URETERS: Unremarkable. The kidneys enhance symmetrically. No obstructing renal or ure teral calculus is seen. No hydronephrosis or hydroureter. No perinephric fluid or stranding. STOMACH AND BOWEL: The stomach is minimally filled with fluid and air. The small bowel is normal in caliber. Stool is present throughout colon. There is no mucosal thickening or evidence of obstruct ion. PELVIS: APPENDIX: The appendix is normal in caliber without surrounding inflammation. BLADDER: Unremarkable. No mass. REPRODUCTIVE: An IUD is present. The uterus and ovaries are unremarkable. The IUD is in improved position though still located within the mid to lower uterine segment. ABDOMEN and PELVIS: INTRAPERITONEAL SPACE: Unremarkable. No free air. No significant fluid collection. BONES/JOINTS: No acute fracture. SOFT TISSUES: The soft tissues are normal. VASCULATURE: Unremarkable. No abdominal aortic aneurysm. LYMPH NODES: Unremarkable. No enlarged lymph nodes. IMPRESSION: 1. Normal appendix. No bowel obstruction. 2. IUD as described. 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 The interpreting radiologist is fully responsible for the content of the report.
== END 2022-07-12 03:20 | disposition home or self-care (01) ==
LOC: ER 20:03
DX: R11.2 Nausea with vomiting, unspecified (principal); R10.9 Unspecified abdominal pain; Z20.822 Contact with and (suspected) exposure to COVID-19
CPT/HCPCS: 0240U; 36415; 74177; 76705; 80053; 81003; 83605; 83690; 85025; J2405; J2550; J7030; Q9967